=== PATIENT | male | born 1995 | race Caucasian/White ===

== ENCOUNTER 2018-04-06 15:36 | Emergency (ER) | payer OTHER ==
[~2018-04-06] VITALS: Ht 180.3 cm; Wt 67.1 kg
[2018-04-06 15:39] VITALS: Ht 180.3 cm; Wt 67.1 kg
[2018-04-06 17:04] VITALS: BP 126/75
== END 2018-04-06 17:04 | disposition home or self-care (01) ==
LOC: ED 15:36
DX: S42.022A Displaced fracture of shaft of left clavicle, initial encounter for closed fracture (principal); W18.30XA Fall on same level, unspecified, initial encounter; Y93.51 Activity, roller skating (inline) and skateboarding; Y92.9 Unspecified place or not applicable; Y99.8 Other external cause status